=== PATIENT | male | born 1950 | race Two or more races ===

== ENCOUNTER 2017-03-27 09:48 | Outpatient (CLI) | payer MEDICARE ==
--- NOTE | 2017-03-27 12:53 | Diagnostic Imaging Report ---
Clinical Indication: Left lower quadrant pain Technique: Patient given oral contrast. IV administration nonionic contrast. Venous phase spiral acquisition obtained through the abdomen and pelvis. Multiplanar reconstructions were generated. Total dose length product 1069 mGycm. CTDIvol(s) 18 mGy. Dose reduction achieved using automated exposure control Comparison: None Findings: There is no evidence of diverticulosis or diverticulitis. The appendix is normal. No small bowel distention. No free or loculated intraperitoneal air or fluid. Distal esophagus, stomach, duodenum are unremarkable. No small bowel wall thickening. No small bowel distention. The liver is equivocally mildly hypoattenuating. No focal abnormality. The gallbladder, bile ducts, pancreas, spleen, are unremarkable. Both kidneys demonstrate somewhat irregular cortical contours. The left kidney demonstrates one or more small subcentimeter low-attenuation lesions, too small to characterize, most likely benign simple cortical cysts. The right kidney demonstrates at least 2 calyceal calculi, each under 2 millimeters within the bladder lumen. No hydronephrosis, or hydroureter. There are are at least 3 bladder calculi. The largest of these measures 14 mm in diameter. The prostate is mildly enlarged, indents the bladder floor. It contains calcifications. There is a small fat-containing right inguinal hernia. The lung bases demonstrate posterior dependent atelectatic changes. The bones demonstrate degenerative spondylosis changes. There is transitional anatomy of the lumbosacral junction. Impression: No acute process Equivocal mild fatty hepatic change Punctate nonobstructive right renal calyceal calculi Multiple bladder calculi, largest measuring 14 mm in diameter Mild prostatomegaly Incidental findings small fat-containing right inguinal hernia, degenerative spondylosis, dependent pulmonary atelectasis The CT scanner at [facility] is accredited by the [employer] and the scans are performed using protocols designed to limit radiation exposure to as low as reasonably achievable to attain images of sufficient resolution adequate for diagnostic evaluation.
== END 2017-03-27 11:48 | disposition home or self-care (01) ==
LOC: CAT 09:48
DX: R10.32 Left lower quadrant pain (principal); N28.1 Cyst of kidney, acquired; N40.0 Benign prostatic hyperplasia without lower urinary tract symptoms; K40.90 Unilateral inguinal hernia, without obstruction or gangrene, not specified as recurrent; M47.9 Spondylosis, unspecified; J98.11 Atelectasis
CPT/HCPCS: 74177; Q9967

== ENCOUNTER 2017-07-18 12:55 | Outpatient (CLI) | payer MEDICARE ==
--- NOTE | 2017-07-18 14:49 | Diagnostic Imaging Report ---
Indication: COUGH Technique: Two views of the chest Comparison: none Findings: The lungs and pleural spaces are clear. Heart size is normal. Aorta is tortuous and ectatic. Upper mediastinum is unremarkable. There are degenerative changes of the thoracic spine Impression: No acute process
== END 2017-07-18 14:55 | disposition home or self-care (01) ==
LOC: RAD 12:55
DX: R05 Cough (principal)
CPT/HCPCS: 71020

== ENCOUNTER 2018-07-23 13:37 | Outpatient (CLI) | payer MEDICARE | END 2018-07-23 15:37 | disposition home or self-care (01) | LOC: MRI 13:37 | DX: M25.562 Pain in left knee (principal); Z53.9 Procedure and treatment not carried out, unspecified reason ==